=== PATIENT | female | born 1995 | race Caucasian/White ===

== ENCOUNTER 2019-07-11 08:28 | Emergency (ER) | payer MEDICAID, OTHER ==
[~2019-07-11] VITALS: Ht 160 cm; Wt 50.0 kg
[2019-07-11] MEDS ORDERED: KETOROLAC 60MG/2ML VIAL IM STA (09:08)
[2019-07-11 09:31] LABS: CLARITY URINE CLOUDY (CLEAR); COLOR URINE YELLOW (YELLOW); KETONES URINE NEGATIVE (NEGATIVE); LEUKOCYTE ESTERASE URINE 2+ (NEGATIVE); NITRITE URINE POSITIVE (NEGATIVE); OCCULT BLOOD URINE NEGATIVE (NEGATIVE); PH URINE 7.5 (4.5-8.0); PROTEIN URINE NEGATIVE (NEGATIVE); SPECIFIC GRAVITY URINE 1.022 (1.005-1.030)
[2019-07-11] MEDS ORDERED: LIDOCAINE HCL/PF 1% 10 MG/ML 5ML VIAL IJ ONE (10:00)
[2019-07-11] MEDS ORDERED: CEFTRIAXONE SODIUM 1 G/VIAL IM ONE (10:00)
[2019-07-11 10:25] VITALS: BP 113/69
== END 2019-07-11 10:28 | disposition home or self-care (01) ==
LOC: ER 08:28
DX: S20.211A Contusion of right front wall of thorax, initial encounter (principal); N39.0 Urinary tract infection, site not specified; W01.198A Fall on same level from slipping, tripping and stumbling with subsequent striking against other object, initial encounter; Y93.01 Activity, walking, marching and hiking; Y92.89 Other specified places as the place of occurrence of the external cause; Y99.8 Other external cause status
CPT/HCPCS: 71101; 81003; 81025; 87077; 87086; 87186; 96372; 99284; J0696; J1885; J3490

== ENCOUNTER 2022-01-18 23:42 | Emergency (ER) | payer MEDICAID, OTHER ==
[~2022-01-18] VITALS: Ht 152.4 cm; Wt 52.7 kg
[2022-01-19] MEDS ORDERED: ACETAMINOPHEN 325MG TABLET PO ONE (00:30)
[2022-01-19 01:15] LABS: CLARITY URINE CLOUDY (CLEAR); COLOR URINE DARK YELLOW (YELLOW); KETONES URINE TRACE (NEGATIVE); LEUKOCYTE ESTERASE URINE 2+ (NEGATIVE); NITRITE URINE NEGATIVE (NEGATIVE); OCCULT BLOOD URINE TRACE (NEGATIVE); PH URINE 5.5 (4.5-8.0); PROTEIN URINE TRACE (NEGATIVE); SPECIFIC GRAVITY URINE 1.018 (1.005-1.030)
[2022-01-19] MEDS ORDERED: CEPH250C2 MT (04:00)
[2022-01-19 04:39] VITALS: BP 100/87
== END 2022-01-19 05:02 | disposition home or self-care (01) ==
LOC: ER 23:42
DX: O26.892 Other specified pregnancy related conditions, second trimester (principal); S39.81XA Other specified injuries of abdomen, initial encounter; O23.42 Unspecified infection of urinary tract in pregnancy, second trimester; N39.0 Urinary tract infection, site not specified; Z3A.16 16 weeks gestation of pregnancy; W01.0XXA Fall on same level from slipping, tripping and stumbling without subsequent striking against object, initial encounter; Y93.89 Activity, other specified; Y92.018 Other place in single-family (private) house as the place of occurrence of the external cause
CPT/HCPCS: 76805; 81003; 81025; 93005; 99285

== ENCOUNTER 2022-04-18 21:47 | Observation (INO) | payer MEDICAID, OTHER ==
[~2022-04-18] VITALS: Ht 149.9 cm; Wt 58.8 kg
[~2022-04-18 21:47] MED LIST: CEPH250C2 MT
[2022-04-18 22:18] VITALS: BP 105/62
[2022-04-19 00:05] LABS: CLARITY URINE CLEAR (CLEAR); COLOR URINE YELLOW (YELLOW); KETONES URINE NEGATIVE (NEGATIVE); LEUKOCYTE ESTERASE URINE 2+ (NEGATIVE); NITRITE URINE NEGATIVE (NEGATIVE); OCCULT BLOOD URINE NEGATIVE (NEGATIVE); PROTEIN URINE NEGATIVE (NEGATIVE); SPECIFIC GRAVITY URINE 1.015 (1.005-1.030)
[2022-04-19] MEDS ORDERED: PREN-176 PO (01:06)
[2022-04-19] MEDS ORDERED: CALC-1042 PO (01:06)
[2022-04-19] MEDS ORDERED: FERR-71 PO (01:06)
[2022-04-19] MEDS ORDERED: LACTATED RINGERS 1,000 ML IV SCH (04:45)
[2022-04-19] MEDS ORDERED: CEFAZOLIN 2,000 MG in DEXT 5% WATER 100 ML IV NR (05:30)
[2022-04-19] MEDS ORDERED: ACETAMINOPHEN 325MG TABLET PO NR (05:45)
== END 2022-04-19 06:45 | disposition home or self-care (01) ==
LOC: ER 21:47 → 8 EST LDRP 23:55
PROVIDERS: ADMIT Specialist; ATTEND Specialist
DX: O26.893 Other specified pregnancy related conditions, third trimester (principal); R10.9 Unspecified abdominal pain; R42 Dizziness and giddiness; O99.891 Other specified diseases and conditions complicating pregnancy; M54.9 Dorsalgia, unspecified; O21.2 Late vomiting of pregnancy; Z3A.29 29 weeks gestation of pregnancy
CPT/HCPCS: 59025; 76805; 76818; 81003; 87426; 96365; G0378; J0690; J7060; 59412; 96360; 96361; 99281

== ENCOUNTER 2022-06-07 23:00 | Observation (INO) | payer MEDICAID ==
[~2022-06-07] VITALS: Ht 149.9 cm; Wt 58.1 kg
[~2022-06-07 23:00] MED LIST changes: +CALC-1042 PO; -CEPH250C2 MT; +FERR-71 PO; +PREN-176 PO
[2022-06-08] MEDS: LACTATED RINGERS 1,000 ML IV SCH ×2 (00:47→03:58)
[2022-06-08 00:48] LABS: CLARITY URINE CLEAR (CLEAR); COLOR URINE YELLOW (YELLOW); KETONES URINE NEGATIVE (NEGATIVE); LEUKOCYTE ESTERASE URINE 2+ (NEGATIVE); NITRITE URINE NEGATIVE (NEGATIVE); OCCULT BLOOD URINE NEGATIVE (NEGATIVE); PH URINE 5.5 (4.5-8.0); PROTEIN URINE NEGATIVE (NEGATIVE); SPECIFIC GRAVITY URINE 1.023 (1.005-1.030)
[2022-06-08] MEDS ORDERED: CEFAZOLIN 2,000 MG in DEXT 5% WATER 100 ML IV SCH (01:30)
[2022-06-08] MEDS ORDERED: ACETAMINOPHEN 500MG TABLET PO PRN (03:30)
== END 2022-06-08 08:15 | disposition home or self-care (01) ==
LOC: 8 EST LDRP 23:00
PROVIDERS: ADMIT Obstetrics & Gynecology; ATTEND Obstetrics & Gynecology
DX: O99.891 Other specified diseases and conditions complicating pregnancy (principal); M54.9 Dorsalgia, unspecified; R10.2 Pelvic and perineal pain; Z3A.36 36 weeks gestation of pregnancy
CPT/HCPCS: 59025; 76805; 76818; 81003; 87086; 96361; 96365; G0378; J0690; J7060; 96360; 99281; G0379